=== PATIENT | male | born 1975 | race African-American/Black ===

== ENCOUNTER 2023-06-12 09:36 | Emergency (ER) | payer MEDICAID ==
[~2023-06-12] VITALS: Ht 175.3 cm; Wt 87.0 kg
[2023-06-12 09:40] VITALS: O2SAT 100
[2023-06-12] MEDS ORDERED: ONDANSETRON HCL 4MG/2ML INJ IV STA (10:10)
[2023-06-12] MEDS ORDERED: MORPHINE SULFATE 4 MG/ML CPJ (NOT FOR IM USE) IV STA (10:10)
[2023-06-12] MEDS ORDERED: SODIUM CHLORIDE 0.9% 1,000 ML IV ONE (10:15)
[2023-06-12 10:52] LABS: HEMATOCRIT. 53.6 % (42.0-52.0); HEMOGLOBIN. 17.9 g/dL (14.0-18.0); MEAN CORPUSCULAR HEMOGLOBIN 30.9 pg (28.0-32.0); MEAN CORPUSCULAR HGB CONC 33.4 g/dL (31.0-37.0); MEAN CORPUSCULAR VOLUME 92.4 fL (80.0-94.0); MEAN PLATELET VOLUME 7.3 fl (7.4-10.4); PLATELET 289 x1000/uL (130-400); RED CELL DISTRIBUTION WIDTH 14.7 % (11.6-14.6)
[2023-06-12 11:01] LABS: DIFFERENTIAL COMMENT 1
[2023-06-12 11:12] LABS: ALANINE AMINOTRANSFERASE 42 IU/L (10-49); ALBUMIN 4.4 g/dL (3.2-4.8); ASPARTATE AMINOTRANSFERASE 31 IU/L (<34); BILIRUBIN TOTAL 0.7 mg/dL (0.1-1.0); CALCIUM 9.5 mg/dL (8.7-10.4); CARBON DIOXIDE 27 mEq/L (21-32); CHLORIDE 103 mEq/L (98-107); CREATININE 1.4 mg/dL (0.6-1.3); GLUCOSE 183 mg/dL (70-105); POTASSIUM 4.4 mEq/L (3.5-5.1); PROTEIN TOTAL 7.4 g/dL (6.0-8.3); SODIUM 136 mEq/L (136-145); UREA NITROGEN BLOOD 11 mg/dL (9-23)
[2023-06-12 11:40] LABS: PLATELET ESTIMATE NORMAL
[2023-06-12 12:46] LABS: CLARITY URINE CLEAR (CLEAR); COLOR URINE YELLOW (YELLOW); GLUCOSE URINE NEGATIVE (NEGATIVE); KETONES URINE NEGATIVE (NEGATIVE); NITRITE URINE NEGATIVE (NEGATIVE); OCCULT BLOOD URINE TRACE (NEGATIVE); PH URINE 5.5 (4.5-8.0); PROTEIN URINE NEGATIVE (NEGATIVE); SPECIFIC GRAVITY URINE 1.024 (1.005-1.030); UROBILINOGEN URINE 0.2 E.U./dL (0.2-1.0)
[2023-06-12 12:47] LABS: LEUKOCYTE ESTERASE URINE NEGATIVE (NEGATIVE)
[2023-06-12 13:02] LABS: SQUAMOUS EPITHELIAL CELL URINE FEW /lpf (RARE/1+)
[2023-06-12 13:03] LABS: BACTERIA URINE TRACE; RBC URINE 0-2 /hpf (0-2); WBC URINE 0-2 /hpf (0-2)
[2023-06-12] MEDS ORDERED: KETOROLAC 60MG/2ML VIAL IM ONE (14:15)
[2023-06-12] MEDS ORDERED: P50 MT (17:05)
[2023-06-12] MEDS ORDERED: MELO-106 MT (17:05)
[2023-06-12 17:29] VITALS: BP 125/73; PULSE 83; RESP 18; TEMP 98.4
== END 2023-06-12 17:32 | disposition home or self-care (01) ==
LOC: ER 09:36
DX: R19.7 Diarrhea, unspecified (principal)
CPT/HCPCS: 99285; 72146; 96374; 96361; 96375; 80053; 81003; 83690; 85025; 36415; 72148; 96372; J1885; J2405; J2270; J7030